=== PATIENT | male | born 1995 ===

== ENCOUNTER 2018-04-01 11:35 | Emergency (ER) | payer OTHER ==
[2018-04-01 14:14] VITALS: BP 128/76
--- NOTE | 2018-04-01 15:13 | ED ---
Throat Pain/Nasal Congestion - HPI Summary HPI Summary: Is a 22-year-old male presenting to the ED with parents with persistent hiccups. States hiccups have been present persistently for approximately 48 hours with relief intermittently throughout the day and at bedtime while asleep. He states he has never had anything like this in the past. He has been drinking water without good relief. He states he feels a pressure in his epigastric region and every time he hiccups he feels a burning sensation extending upward into the throat. Never diagnosed with GERD in the past and takes no medications. He is also endorsing some pain to the distal tip of the right thumb which was diagnosed as a paronychia with incision and drainage recently. He was placed on antibiotics. He endorses some white slightly elevated papules around the thumb area which she has been keeping covered with a Band-Aid. Mother is concerned over a cerebellar lesion or something more concerning is the etiology of his persistent hiccups. He denies any fevers, sweats, chills. He denies any headaches or breathing difficulties. He states he has been having decreased by mouth intake over the past day due to the persistent hiccups. - History of Current Complaint Chief Complaint: EDGeneral Time Seen by Provider: 04/01/18 12:13 Hx Obtained From: Patient Onset/Duration: Sudden Onset Severity: Moderate Associated Signs And Symptoms: Positive: Negative - Epiglottits Risk Factors Epiglottis Risk Factors: Negative - Allergies/Home Medications Allergies/Adverse Reactions: Allergies Allergy/AdvReac Type Severity Reaction Status Date / Time codeine Allergy Nausea And Verified 04/01/18 11:44 Vomiting Home Medications: Home Medications Cephalexin CAP* [Keflex 500 CAP*] 500 mg PO TID 04/01/18 [History Confirmed ] PMH/Surg Hx/FS Hx/Imm Hx Previously Healthy: Yes History: Reports: Other Problems/Disorders - LEFT HYDROCELE PRESENTLY Sensory History: Denies: Hx Contacts or Glasses, Hx Hearing Aid Opthamlomology History: Denies: Hx Contacts or Glasses - Surgical History Surgery Procedure, Year, and Place: 2006 TONSILLECTOMY, [place]. AGE 5 MYRINGOTOMY WITH BILATERAL TUBE INSECTION, [facility] Hx Anesthesia Reactions: No - FATHER STATES SOME VOMITING WITH CODEINE GIVEN WITH TONSILLECTOMY - Immunization History Hx Pertussis Vaccination: No Immunizations Up to Date: Yes Infectious Disease History: No Infectious Disease History: Denies: Traveled Outside the [place] in Last 30 Days - Social History Occupation: Unemployed, Student Lives: Alone Alcohol Use: Occasionally Hx Substance Use: Yes Substance Use Type: Reports: Marijuana Smoking Status (MU): Never Smoked Tobacco Review of Systems Constitutional: Negative Negative: Fever, Chills, Fatigue, Skin Diaphoresis Negative: Epistaxis, Dental Pain, Sore Throat Negative: Palpitations, Chest Pain Positive: Other - hiccups . Negative: Shortness Of Breath, Cough Genitourinary: Negative Positive: no symptoms reported, see HPI Negative: Arthralgia, Myalgia Skin: Negative Neurological: Negative All Other Systems Reviewed And Are Negative: Yes Physical Exam Triage Information Reviewed: Yes Vital Signs On Initial Exam: Initial Vitals Temp Pulse Resp BP Pulse Ox 98.3 F 71 18 126/83 98 04/01/18 11:44 04/01/18 11:44 04/01/18 11:44 04/01/18 11:44 04/01/18 11:44 Vital Signs Reviewed: Yes Appearance: Positive: Well-Appearing, Well-Nourished Skin: Positive: Warm, Skin Color Reflects Adequate Perfusion, Other - herpetic horacio of the R thumb Head/Face: Positive: Normal Head/Face Inspection Eyes: Positive: EOMI, VANESA, Conjunctiva Clear Neck: Positive: Supple, No Lymphadenopathy Respiratory/Lung Sounds: Positive: Clear to Auscultation, Breath Sounds Present Cardiovascular: Positive: RRR, Pulses are Symmetrical in both Upper and Lower Extremities Musculoskeletal: Positive: Normal, Strength/ROM Intact Neurological: Positive: Sensory/Motor Intact, Alert, Oriented to Person Place, Time, Speech Normal Psychiatric: Positive: Normal, Affect/Mood Appropriate AVPU Assessment: Alert Diagnostics - Vital Signs Vital Signs Temp Pulse Resp BP Pulse Ox 04/01/18 14:13 98.2 F 60 14 128/76 98 04/01/18 11:44 98.3 F 71 18 126/83 98 - Laboratory Lab Statement: Any lab studies that have been ordered have been reviewed, and results considered in the medical decision making process. EENT Course/Dx - Course Course Of Treatment: Discussed at length with patient and mother information regarding hiccups and an etiology of such. As it has been approximately 24-48 hours of persistent intermittent throughout the day hiccups, is not bleeding at this time he warrants a further workup. On arrival, hiccups ceased and during his 2 hour stay he did not have any hiccups for the RN or provider. Discussed with the patient adding omeprazole for a short time to see if the hiccups would cease, as well as adding an [id number] Maalox. I am also giving him a antiviral for the thumb which appears to be a herpetic horacio outbreak. He states he has been under a lot of stress recently and this is the first outbreak. Patient appears very well and is OK for discharge. He has a follow up with his PCP on Apr 05 (4 days) and will discuss with PCP. - Diagnoses Provider Diagnoses: Hiccups Discharge - Sign-Out/Discharge Documenting (check all that apply): Patient Departure - Discharge Plan Condition: Stable Disposition: HOME Prescriptions: Acyclovir* [Zovirax 400 MG TAB*] 400 mg PO TID #15 tab Omeprazole 40 mg PO DAILY #30 capsule. Patient Education Materials: Hiccups (ED) Referrals: Beny Almaraz MD [Primary Care Provider] - Additional Instructions: Physical maneuvers appear to terminate hiccup bouts in many patients and are simple and generally safe to perform [4]. These maneuvers are designed to interrupt normal respiratory function, stimulate/irritate the nasopharynx or uvula, increase vagal stimulation, or relieve irritation of the diaphragm. Examples include breath holding or performing Valsalva maneuver (to increase hypercapnia), sipping cold water, pulling on the tongue, gargling with water, or swallowing a teaspoon of dry sugar (to irritate the nasopharynx), pressing on the eyeballs (for vagal stimulation), and pulling knees to chest or leaning forward to compress the chest (to relieve pressure on the diaphragm) Omeprazole 40mg once daily Acyclovir 400mg three times daily x 5 days Continue with antibiotic therapy as prescribed Continue soaking the area If symptoms continue - you may return to the ED for further treatment Keep appt on Apr [address] Goyal. - Billing Disposition and Condition Condition: STABLE Disposition: Home
== END 2018-04-01 14:13 | disposition home or self-care (01) ==
LOC: ED 11:35
DX: R06.6 Hiccough (principal)
CPT/HCPCS: 99282